=== PATIENT | female | born 1950 | race Caucasian/White ===

== ENCOUNTER → 2020-11-27 09:09 | Outpatient (CLI) | payer MEDICARE, OTHER, SELFPAY ==
--- NOTE | 2020-11-27 | DI.RAD.S_ITS ---
PROCEDURE: XR CLAVICLE RT INDICATIONS: Fracture of unspecified part of unspecified clavicle TECHNIQUE: 2 views of the clavicle were acquired. COMPARISON: None. FINDINGS: Bones: Prior ORIF of the right clavicle. No plate lift off. No periscrew lucency. Degenerative hypertrophy at the AC joint. Mild glenohumeral joint DJD. No fractures or dislocations. No suspicious bony lesions. Soft tissues: No suspicious soft tissue calcifications. IMPRESSION: Intact right clavicle ORIF. Dictated by: Delgado Huerta M.D. on 11/27/2020 at 11:03 Approved by: Delgado Huerta M.D. on 11/27/2020 at 11:05
== END ==
PROVIDERS: Referring Provider Orthopaedic Surgery Sports Medicine; Visit Provider Orthopaedic Surgery Sports Medicine
DX: S42.001D Fracture of unspecified part of right clavicle, subsequent encounter for fracture with routine healing (principal); M19.09 Primary osteoarthritis, other specified site; X58.XXXD Exposure to other specified factors, subsequent encounter
CPT/HCPCS: 73000